=== PATIENT | female | born 1980 | race Caucasian/White ===

== ENCOUNTER 2017-08-01 02:05 | Emergency (ER) | payer BC ==
[~2017-08-01] VITALS: Ht 170.2 cm; Wt 91.5 kg
[~2017-08-01 02:05] MED LIST: BENTYL10 MG PO; CIPRO500 MG PO; CLEOCIN150 MG PO; DILAUDID2 MG PO; FLAGYL500 MG PO; HYDROCODON-ACE1 EAC7 PO; LIDOCAINE HCL20 ML TP
[2017-08-01] MEDS ORDERED: PREDNISONE20 MG PO (02:33)
[2017-08-01] MEDS ORDERED: ZITHROMAX250 MG PO (02:33)
[2017-08-01] MEDS ORDERED: VENTOLIN HFA18 GM IH (02:33)
[2017-08-01 03:41] VITALS: BP 115/77
== END 2017-08-01 04:01 | disposition home or self-care (01) ==
LOC: EME 02:05 → EXP 02:05
DX: J18.0 Bronchopneumonia, unspecified organism (principal); J06.9 Acute upper respiratory infection, unspecified; F17.200 Nicotine dependence, unspecified, uncomplicated; Z71.6 Tobacco abuse counseling
CPT/HCPCS: 71046; 80048; 85027; 94640; 99281; 99284; J7512

== ENCOUNTER 2017-08-06 01:57 | Emergency (ER) | payer BC ==
[~2017-08-06] VITALS: Ht 170.2 cm; Wt 93.4 kg
[~2017-08-06 01:57] MED LIST changes: +PREDNISONE20 MG PO; +VENTOLIN HFA18 GM IH; +ZITHROMAX250 MG PO
[2017-08-06] MEDS ORDERED: HYCODAN SYRUP480 ML PO (03:51)
[2017-08-06] MEDS ORDERED: LIDODERM 5% P1 PATCH TD (03:51)
[2017-08-06 04:33] VITALS: BP 139/82
== END 2017-08-06 04:36 | disposition home or self-care (01) ==
LOC: EME 01:57
DX: M94.0 Chondrocostal junction syndrome [Tietze] (principal); J40 Bronchitis, not specified as acute or chronic; Z71.6 Tobacco abuse counseling; F17.200 Nicotine dependence, unspecified, uncomplicated
CPT/HCPCS: 71046; 94640; 99281; 99284